=== PATIENT | female | born 1965 | race Two or more races ===

== ENCOUNTER 2022-10-10 10:03 | Emergency (ER) | payer MEDICARE, OTHER ==
[~2022-10-10] VITALS: Ht 167.6 cm; Wt 129.3 kg
[2022-10-10 10:05] VITALS: BP 162/93
--- NOTE | 2022-10-10 10:15 | NUR ---
DR HERNANDEZ AT BEDSIDE
--- NOTE | 2022-10-10 11:17 | NUR ---
[facility] CALLED FOR TRANSPORT, ETA 60 MINS
== END 2022-10-10 12:55 | disposition home or self-care (01) ==
LOC: ER 10:09
DX: M54.50 Low back pain, unspecified (principal); M25.532 Pain in left wrist; I10 Essential (primary) hypertension; E11.9 Type 2 diabetes mellitus without complications; F20.9 Schizophrenia, unspecified; F31.9 Bipolar disorder, unspecified; Z88.8 Allergy status to other drugs, medicaments and biological substances
CPT/HCPCS: 72100-TC; 73110